=== PATIENT | female | born 1980 | race Caucasian/White ===

== ENCOUNTER 2017-11-21 23:03 | Emergency (ER) | payer OTHER ==
[2017-11-21 23:25] VITALS: BP 138/96; PULSE 72; TEMP 98.6; BMI 24.7
[2017-11-22] MEDS ORDERED: AMOX TR/POT CLAV 875MG/125MG TABLETS (FP) PO ONE (00:09)
--- NOTE | 2017-11-22 00:13 | PDOC ---
History of Present Illness - General Chief Complaint: Redness To Affected Area Stated Complaint: FINGER INFECTION Time Seen by Provider: 11/21/17 23:08 - History of Present Illness Initial Comments: This 37-year-old woman with a history of multiple rheumatologic problems ( including Raynaud's syndrome/mixed connective tissue disorder) presents with 2 day history of progressive swelling/redness/pain around the right third fingernail. Yesterday, the patient noted "hangnail" which she clipped using cuticle nippers. Today, she noted increase in pain and swelling with redness around the nail. No pain/redness/swelling of finger or hand. No fever/chills. Patient has history of paronychia in the past but has never needed incision and drainage. Previous episodes of paronychia spontaneously drained. She states that she has not had fingernail infection in many years. She denies history of infection or colonization with resistant organisms. Past History - Past Medical History Allergies/Adverse Reactions: Allergies Allergy/AdvReac Type Severity Reaction Status Date / Time No Known Allergies Allergy Unverified 10/28/13 20:53 Home Medications: Ambulatory Orders Amox-Tr/K Cl [Augmentin - 875Mg Tablet] 1 tab PO BID #14 tablet 11/22/17 Amox-Tr/K Cl [Augmentin - 875Mg Tablet] 1 tab PO BID #14 tablet 11/22/17 COPD: No Psychiatric Problems: Yes Other medical history: HX MRSA - Immunization History Immunization Up to Date: No - Suicide/Smoking/Psychosocial Hx Smoking History: Never smoked Have you smoked in the past 12 months: Yes Number of Cigarettes Smoked Daily: 0 Information on smoking cessation initiated: Yes Hx Alcohol Use: No Substance Use Type: None Review of Systems - Review of Systems Able to Perform ROS?: Yes Comments:: 12 point review of systems is negative except for what is noted in the history of present illness *Physical Exam - Vital Signs Last Vital Signs Temp Pulse Resp BP Pulse Ox 98.6 F 72 18 138/96 100 11/21/17 23:19 11/21/17 23:19 11/21/17 23:19 11/21/17 23:19 11/21/17 23:19 - Physical Exam Comments: GENERAL: Adult female, alert and oriented 3, in no acute distress EXTREMITIES: Right upper extremitythird finger: Moderate edema/erythema of the lateral nail folds without fluctuance or purulence noted No open wound of the eponychium noted Nailbed normal without laceration/hematoma Remainder of the extremity exam is normal NEUROLOGICAL: Cranial nerves II through XII grossly intact. Normal speech. No focal neurological deficits. MUSCULOSKELETAL: Back non-tender to palpation, no CVA tenderness SKIN: Warm, Dry, normal turgor, no rashes or lesions noted. Progress Note - Progress Note Progress Note: As noted above, was 37-year-old woman presents with painful, erythematous swelling around her third right fingernail. Area had a "hangnail" that patient clipped yesterday; patient has history of paronychia. On exam, the area inflamed but without fluctuance or drainage. Patient was asked specifically if she had any history of resistant organism infection; she denied this. Patient will be treated with Augmentin 875/25 twice a day for one week; first dose was given here in the emergency room Meanwhile, patient will continue to soak the finger in warm water at least 3-4 times a day. If increasing pain or drainage occurs, she should return to the ER or follow up with her general doctor. *DC/Admit/Observation/Transfer Diagnosis at time of Disposition: Paronychia - Discharge Dispostion Disposition: HOME Condition at time of disposition: Stable - Prescriptions Prescriptions: Amox-Tr/K Cl [Augmentin - 875Mg Tablet] 1 tab PO BID #14 tablet Amox-Tr/K Cl [Augmentin - 875Mg Tablet] 1 tab PO BID #14 tablet - Referrals - Patient Instructions Printed Discharge Instructions: Paronychia Additional Instructions: Warm soaks to the finger at least 3-4 times a day Can use Neosporin/bacitracin ointment ; apply 2-3 times a day Augmentin 875/125 twice a day; take with food Return to ER or see your doctor if area becomes more swollen/painful or you develop drainage of pus - Post Discharge Activity
[2017-11-22] MEDS ORDERED: AMOX TR/POT CLAV 875MG/125MG TABLETS (FP) ONE ×2 (00:16→00:22)
== END 2017-11-22 00:24 | disposition home or self-care (01) ==
LOC: FER 23:03
DX: L03.011 Cellulitis of right finger (principal); F99 Mental disorder, not otherwise specified; I73.00 Raynaud's syndrome without gangrene
CPT/HCPCS: 99281-25

== ENCOUNTER 2020-10-23 23:03 | Emergency (ER) | payer OTHER ==
[2020-10-23] MEDS ORDERED: IBUPROFEN 600 MG TABLET (FP) PO ONE ×2 (23:12→23:15)
[2020-10-23 23:18] VITALS: BMI 27.4
[2020-10-23 23:47] VITALS: BP 127/83; PULSE 93; TEMP 99.9
[2020-10-25 11:08] LABS: SARS-CoV-2 NAA Detected (Not Detected)
== END 2020-10-23 23:50 | disposition home or self-care (01) ==
LOC: FER 23:03
DX: B34.9 Viral infection, unspecified (principal)
CPT/HCPCS: 87804; 99283-25; C9803; U0003; U0005

== ENCOUNTER 2020-10-30 15:42 | Observation (INO) | payer OTHER ==
[2020-10-30 16:02] VITALS: BMI 27.1
[2020-10-30] MEDS ORDERED: ACETAMINOPHEN 325 MG TABLET (FP) PO ONE (17:53)
[2020-10-30] MEDS ORDERED: CASIRIVIMAB (REGN10933) 600 MG, IMDEVIMAB (REGN10987) 600 MG in SODIUM CHLORIDE 100 ML IVPB ONE (17:53)
[2020-10-30] MEDS ORDERED: SODIUM CHLORIDE 1,000 ML IV STA (18:54)
[2020-10-30] MEDS ORDERED: DEXAMETHASONE SOD PHOSPHATE 10 MG/1 ML VIAL IVPUSH ONE (19:40)
[2020-10-30 19:44] LABS: BASO % 0.3 % (0-2.0); EOS % 0.2 % (0-4.5); HEMATOCRIT 40.6 % (32.4-45.2); HEMOGLOBIN 14.3 GM/dL (10.7-15.3); LYMPH % 13.7 % (8-40); MCH 32.7 pg (25.7-33.7); MCHC 35.1 g/dl (32.0-36.0); MEAN CELL VOLUME 93.1 fl (80-96); MEAN PLT VOLUME 9.7 fl (7.5-11.1); NEUT % 79.8 % (42.8-82.8); PLATELET COUNT 81 10^3/uL (134-434); RBC 4.36 M/mm3 (3.60-5.2); RDW 13.1 % (11.6-15.6); WHITE BLOOD COUNT 2.1 K/mm3 (4.0-10.0)
[2020-10-30 20:13] LABS: ALBUMIN 3.1 g/dl (3.4-5.0); BLOOD UREA NITROGEN 10.3 mg/dL (7-18); CALCIUM 7.8 mg/dL (8.5-10.1)
[2020-10-30 20:17] LABS: CREATININE 0.9 mg/dL (0.55-1.3)
[2020-10-30 20:18] LABS: BILIRUBIN,TOTAL 0.3 mg/dL (0.2-1); TOT PROT 6.4 g/dl (6.4-8.2)
[2020-10-30] MEDS ORDERED: DEXAMETHASONE SOD PHOSPHATE 10 MG/1 ML VIAL ONE (20:19)
[2020-10-30 22:38] LABS: MAGNESIUM 1.6 mg/dL (1.8-2.4)
[2020-10-30] MEDS ORDERED: MAGNESIUM SULF 50% (8.12 MEQ/2 ML-1 GM VIAL) IVPB ONE (22:49)
[2020-10-30] MEDS: guaiFENesin 200 MG/10 ML 10 ML UNIT-DOSE CUPS PO PRN (23:00)
[2020-10-30] MEDS ORDERED: guaiFENesin/D-METHORPHAN HB 10 ML UNIT-DOSE CUPS ONE (23:00)
[2020-10-30] MEDS ORDERED: MAGNESIUM SULFATE IN WATER 2 GM/50 ML IVPB IVPB ONE (23:01)
[2020-10-31] MEDS ORDERED: ACETAMINOPHEN 325 MG TABLET (FP) PO PRN
[2020-10-31] MEDS ORDERED: ACETAMINOPHEN 325 MG TABLET (FP) ONE ×2 (00:53→08:13)
[2020-10-31] MEDS ORDERED: guaiFENesin 200 MG/10 ML 10 ML UNIT-DOSE CUPS ONE (05:09)
[2020-10-31] MEDS ORDERED: guaiFENesin/D-METHORPHAN HB 10 ML UNIT-DOSE CUPS ONE (05:09)
[2020-10-31] MEDS ORDERED: ALBUTEROL SO4 HFA INHALER IH PRN (05:12)
[2020-10-31] MEDS: guaiFENesin 200 MG/10 ML 10 ML UNIT-DOSE CUPS PO PRN (05:17)
[2020-10-31 06:09] LABS: BASO % 0.4 % (0-2.0); HEMATOCRIT 41.7 % (32.4-45.2); HEMOGLOBIN 14.9 GM/dL (10.7-15.3); LYMPH % 14.3 % (8-40); MCH 33.5 pg (25.7-33.7); MCHC 35.6 g/dl (32.0-36.0); MEAN CELL VOLUME 93.9 fl (80-96); MEAN PLT VOLUME 10.3 fl (7.5-11.1); NEUT % 82.3 % (42.8-82.8); PLATELET COUNT 88 10^3/uL (134-434); RBC 4.44 M/mm3 (3.60-5.2); RDW 13.1 % (11.6-15.6); WHITE BLOOD COUNT 2.6 K/mm3 (4.0-10.0)
[2020-10-31 06:25] LABS: CALCIUM 7.6 mg/dL (8.5-10.1)
[2020-10-31 06:26] LABS: BLOOD UREA NITROGEN 10.2 mg/dL (7-18)
[2020-10-31 06:29] LABS: CREATININE 0.9 mg/dL (0.55-1.3)
[2020-10-31 06:31] LABS: BILIRUBIN,TOTAL 0.3 mg/dL (0.2-1); TOT PROT 6.7 g/dl (6.4-8.2)
[2020-10-31] MEDS ORDERED: ASCORBIC ACID 500 MG TABLET (FP) ONE (08:13)
[2020-10-31] MEDS ORDERED: DEXAMETHASONE SOD PHOSPHATE 10 MG/1 ML VIAL ONE (08:13)
[2020-10-31] MEDS ORDERED: CHOLECALCIFEROL (VIT D3) 1,000 UNIT (25 MCG) TABLET ONE (08:14)
[2020-10-31] MEDS ORDERED: ZINC SULFATE 220 MG CAPSULE (FP) ONE (08:14)
[2020-10-31] MEDS ORDERED: ENOXAPARIN NA (PORCINE) 40 MG/0.4 ML DISP.SYRIN SQ ONE (08:14)
[2020-10-31] MEDS ORDERED: ACETAMINOPHEN 325 MG TABLET (FP) PO ONE (08:32)
[2020-10-31] MEDS ORDERED: ENOXAPARIN NA (PORCINE) 40 MG/0.4 ML DISP.SYRIN SQ SCH (10:00)
[2020-10-31] MEDS ORDERED: ASCORBIC ACID 500 MG TABLET (FP) PO SCH (10:00)
[2020-10-31] MEDS ORDERED: ZINC SULFATE 220 MG CAPSULE (FP) PO SCH (10:00)
[2020-10-31] MEDS ORDERED: DEXAMETHASONE SOD PHOSPHATE 4 MG/1 ML VIAL IVPUSH SCH (10:00)
[2020-10-31] MEDS ORDERED: CHOLECALCIFEROL (VIT D3) 1,000 UNIT (25 MCG) TABLET PO SCH (10:00)
[2020-10-31] MEDS ORDERED: REMDESIVIR 200 MG in SODIUM CHLORIDE 250 ML IVPB ONE (15:00)
[2020-10-31] MEDS ORDERED: ALBUTEROL SO4 HFA INHALER IH SCH (16:00)
[2020-10-31] MEDS ORDERED: ALBUTEROL SO4 HFA INHALER IH ONE (17:26)
[2020-10-31 19:08] VITALS: BP 112/64; PULSE 91; TEMP 98.6
[2020-10-31] MEDS ORDERED: BUDESONIDE/FORMETEROL FUMARATE 160/4.5 mcg INHALER IH SCH (22:00)
[2020-11-01] MEDS ORDERED: REMDESIVIR 100 MG in SODIUM CHLORIDE 250 ML IVPB SCH (15:00)
== END 2020-10-31 18:15 | disposition home or self-care (01) ==
LOC: JER 15:42 → JCOVINFU 15:42 → JERBED 18:58
PROVIDERS: ADMIT Internal Medicine; ATTEND Internal Medicine
PROC: 3E033GC Introduction of Other Therapeutic Substance into Peripheral Vein, Percutaneous Approach (ICD-10-PCS; principal; 2020-10-30)
DX: U07.1 COVID-19 (principal); R09.02 Hypoxemia; M79.10 Myalgia, unspecified site; J44.9 Chronic obstructive pulmonary disease, unspecified; I73.00 Raynaud's syndrome without gangrene; Z29.9 Encounter for prophylactic measures, unspecified; Z87.891 Personal history of nicotine dependence
CPT/HCPCS: 36415; 71046-TC-FY; 80053; 82728; 83615; 83735; 85025; 85379; 86140; 94761; 96365; 96372; 96375; 96376; 99285-25; C9803; G0378; J1100; M0243; Q0243; U0003; U0005